=== PATIENT | male | born 1965 | race American Indian/Alaskan Native ===

== ENCOUNTER 2021-11-09 13:36 | Outpatient (CLI) | payer BC ==
[2021-11-09 14:38] LABS: Eosinophils # (Auto) 0.2 K/mm3 (0.0-0.4); Hematocrit 46.3 % (35.5-45.6); Hemoglobin 14.9 gm/dl (11.8-15.2); Lymphocytes % (Auto) 21.9 % (13.4-35.0); Mean Corpuscular HGB Conc 32 % (32-34); Mean Corpuscular Volume 84 fl (84-94); Monocytes # (Auto) 0.5 K/mm3 (0.0-0.8); Monocytes % (Auto) 10.2 % (0.0-7.3); Platelet Count 224 K/mm3 (140-440)
[2021-11-09 14:46] LABS: Alanine Aminotransferase 18 units/L (7-56); Albumin 4.6 g/dL (3.9-5); BUN/Creatinine Ratio 10; Blood Urea Nitrogen 12 mg/dL (9-20); Calcium 9.8 mg/dL (8.4-10.2); Hemolysis Index 3
[2021-11-09 15:10] LABS: Erythrocyte Sedimentation Rate 8 mm/Hr (0-20)
[2021-11-09 15:27] LABS: Basophils % (Auto) 0.7 % (0.0-1.8)
== END 2021-11-09 13:37 | disposition home or self-care (01) ==
LOC: LAB 13:36
PROVIDERS: ATTEND Specialist
DX: G61.9 Inflammatory polyneuropathy, unspecified (principal)
CPT/HCPCS: 36415; 80053; 82306; 82607; 83036; 83921; 84165; 84443; 85025; 85652; 86038; 86225; 86431; 86592